=== PATIENT | male | born 2000 | race Caucasian/White ===

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

== ENCOUNTER 2022-09-09 03:45 | Emergency (ER) | payer MEDICAID ==
[~2022-09-09] VITALS: Ht 182.9 cm; Wt 118.6 kg
[~2022-09-09 03:45] MED LIST changes: -famotidine 20mg tablet PO ONE; -ringers solution, lacted 1,000 ML IV SCH
--- NOTE | 2022-09-09 04:22 | NUR ---
PT IS NONVERBAL AND UNABLE TO COOPERATE WITH THE GENERAL ASSESSMENT.
--- NOTE | 2022-09-09 04:23 | NUR ---
SPOKE WITH MAURY, DIRECTOR OF [facility], TO UPDATE ON THE PTS CONDITION. MAURY INFORMED SUPERVISOR DRAWING THAT PT HAS A HX OF 2-3 MINUTE SEIZURES ABOUT ONCE A MONTH. WHEN PT IS SENT HOME A STAFF MEMBER OF [facility] WILL PICK HIM UP. CALL MAURY [phone] OR PATRICIA [phone] TO ARRANGE PICKER.
[2022-09-09 04:31] LABS: BASOPHILS % (AUTO) 0.3 % (0-1); EOSINOPHILS % (AUTO) 0 % (0-6); HEMATOCRIT 41.1 % (42.0-52.0); HEMOGLOBIN 14.7 g/dl (14.0-17.9); LYMPHOCYTES # (AUTO) 0.9 X10'3 (1.1-4.8); LYMPHOCYTES % (AUTO) 11.7 % (21-51); MEAN CORPUSCULAR HEMOGLOBIN 30.4 PG (27.0-31.0); MEAN CORPUSCULAR HGB CONC 35.7 g/dL (33.0-36.5); MEAN PLATELET VOLUME 9.3 FL (7.4-10.4); MONOCYTES % (AUTO) 13.3 % (2-12); NEUTROPHILS # (AUTO) 5.7 X10'3 (1.8-7.7); NEUTROPHILS % (AUTO) 74.7 % (42-75); PLATELET COUNT 125 X10'3 (140-440); RED BLOOD COUNT 4.83 X10'6 (4.70-6.10); RED CELL DISTRIBUTION WIDTH 13.9 % (11.5-14.5); WHITE BLOOD COUNT 7.7 X10'3 (4.5-11.0)
--- NOTE | 2022-09-09 04:42 | NUR ---
charting by TITLE I INSTRUCTIONAL ASSISTANT verified
[2022-09-09 04:49] LABS: ALANINE AMINOTRANSFERASE 20 U/L (12-78); ALBUMIN 3.8 G/DL (3.4-5.0); ALBUMIN/GLOBULIN RATIO 1.2 (1.1-1.5); ALKALINE PHOSPHATASE 53 IU/L (46-116); ANION GAP 12 (8-16); ASPARTATE AMINO TRANSFERASE 17 U/L (10-37); BLOOD UREA NITROGEN 10 MG/DL (7-18); BUN/CREATININE RATIO 11.4 (5.4-32.0); CALCIUM 8.7 MG/DL (8.5-10.1); CHLORIDE 109 MMOL/L (99-107); CREATININE 0.88 MG/DL (0.60-1.10); GLUCOSE 109 MG/DL (70-104); POTASSIUM 3.5 MMOL/L (3.5-5.1); SODIUM 142 MMOL/L (135-145); TOTAL CARBON DIOXIDE 20.8 MMOL/L (24-32); TOTAL PROTEIN 6.9 G/DL (6.4-8.2); eGFR > 90 ML/MIN
[2022-09-09 04:51] LABS: VALPROATE 87 UG/ML (50-100)
[2022-09-09 06:00] VITALS: BP 122/78
== END 2022-09-09 06:02 | disposition home or self-care (01) ==
LOC: ER 03:46
DX: G40.909 Epilepsy, unspecified, not intractable, without status epilepticus (principal)
CPT/HCPCS: 36415; 80053; 80164; 85025; 99284

== ENCOUNTER 2023-05-10 20:01 | Inpatient (IN) | payer MEDICAID ==
[~2023-05-10] VITALS: Ht 188 cm; Wt 109.5 kg
--- NOTE | 2023-05-10 20:16 | NUR ---
Notified SAMANTHA Cesar of axillary temp of 100.8F. Arsenio stated to wait for Dr. Tyler's orders. Addendum: 05/10/23 at 2137 by VZAPATA Jayson saw patient. No new orders for possible fever.
[2023-05-10] MEDS ORDERED: normal saline 1000ML IV soln IVB ONE (20:30)
[2023-05-10 20:36] LABS: BASOPHILS % (AUTO) 0.2 % (0-1); EOSINOPHILS % (AUTO) 0.2 % (0-6); HEMATOCRIT 34.4 % (42.0-52.0); HEMOGLOBIN 11.8 g/dl (14.0-17.9); LYMPHOCYTES % (AUTO) 13.4 % (21-51); MEAN CORPUSCULAR HGB CONC 34.4 g/dL (33.0-36.5); MEAN CORPUSCULAR VOLUME 87.1 FL (78-98); MEAN PLATELET VOLUME 9.8 FL (7.4-10.4); MONOCYTES # (AUTO) 1.1 X10'3 (0-0.9); MONOCYTES % (AUTO) 15.2 % (2-12); NEUTROPHILS # (AUTO) 5.2 X10'3 (1.8-7.7); PLATELET COUNT 107 X10'3 (140-440); RED BLOOD COUNT 3.94 X10'6 (4.70-6.10); RED CELL DISTRIBUTION WIDTH 13.3 % (11.5-14.5); WHITE BLOOD COUNT 7.3 X10'3 (4.5-11.0)
[2023-05-10 20:54] LABS: ALANINE AMINOTRANSFERASE 10 U/L (12-78); ALBUMIN 2.7 G/DL (3.4-5.0); ALBUMIN/GLOBULIN RATIO 1.1 (1.1-1.5); ALKALINE PHOSPHATASE 38 IU/L (46-116); ANION GAP 9 (8-16); ASPARTATE AMINO TRANSFERASE 7 U/L (10-37); BILIRUBIN,TOTAL 1.7 MG/DL (0.1-1.0); BLOOD UREA NITROGEN 10 MG/DL (7-18); BUN/CREATININE RATIO 14.5 (10.0-20.0); CALCIUM 7.2 MG/DL (8.5-10.1); CHLORIDE 114 MMOL/L (99-107); CREATININE 0.69 MG/DL (0.60-1.10); GLUCOSE 86 MG/DL (70-104); SODIUM 140 MMOL/L (135-145); TOTAL CARBON DIOXIDE 16.9 MMOL/L (24-32); TOTAL PROTEIN 5.2 G/DL (6.4-8.2); eCRCL 195 ML/MIN; eGFR > 90 ML/MIN
[2023-05-10 21:41] LABS: VALPROATE 53 UG/ML (50-100)
[2023-05-10 21:42] LABS: POTASSIUM 2.7 MMOL/L (3.5-5.1)
[2023-05-10] MEDS ORDERED: divalproex sod 125mg sprinkle cap PO ONE (21:50)
[2023-05-10] MEDS ORDERED: magnesium 2GM in 50ml NS 50 ML IV ONE (21:50)
[2023-05-10] MEDS ORDERED: potassium CL 10mEq/100ml bag 100 ML IV ONE (21:50)
[2023-05-10 22:07] LABS: MAGNESIUM 1.7 MG/DL (1.5-2.4)
[2023-05-10] MEDS ORDERED: ondansetron/PF 4mg/2ml inj IV PRN (22:55)
[2023-05-10] MEDS ORDERED: magnesium 2GM in 50ml NS 50 ML IV PRN (22:55)
[2023-05-10] MEDS ORDERED: magnesium Cl slow-release 64mg tablet PO PRN (22:55)
[2023-05-10] MEDS ORDERED: acetaminophen 325mg tablet PO PRN (22:55)
[2023-05-10] MEDS ORDERED: potassium Cl 40MEQ/1/2NS 520ml 520 ML IV PRN (22:55)
[2023-05-10] MEDS ORDERED: magnesium 4gm in 100ml NS 100 ML IV PRN (22:55)
[2023-05-10] MEDS ORDERED: potassium Cl 20 mEq SR tablet PO PRN ×2 (22:55)
[2023-05-10] MEDS ORDERED: divalproex sodium 500mg tablet.DR PO ONE (23:05)
--- NOTE | 2023-05-10 23:18 | NUR ---
HOSPITALIST AT BEDSIDE MG GTT IMPLEMENTED VIA PUMP PT SLEEPING SOUNDLY
[2023-05-10 23:24] LABS: CREATINE KINASE 111 U/L (39-308)
--- NOTE | 2023-05-11 | NUR ---
Dr. Tyler stated patient does not need UA. No UA collected.
[2023-05-11] MEDS ORDERED: NORMAL SALINE IV ONE ×3 (00:08)
[2023-05-11] MEDS ORDERED: VALPROATE SOD IV ONE ×4 (00:08→00:28)
[2023-05-11] MEDS ORDERED: DEXTROSE 5% IV ONE (00:28)
[2023-05-11] MEDS ORDERED: WATER IV ONE (00:28)
[2023-05-11] MEDS: potassium Cl 40MEQ/1/2NS 520ml 520 ML IV SCH ×2 (00:30→06:12)
[2023-05-11 00:43] LABS: ABG HCO3 16.2 mmol/L (22.0-26.0); ABG OXYGEN SATURATION 94.8 % (94-97); ABG PCO2 (T) 27.2 mmHg (35.0-48.0); ABG PH (T) 7.393 (7.340-7.440); ABG PO2 (T) 70.5 mmHg (75.0-100.0); FCOHb 0.7 % (0.0-3.9); FHHb 5.2 % (0.0-5.0); FMetHb 0.2 % (0.0-1.5); FO2Hb 93.9 % (94-97); MODE ROOM AIR; TOTAL HEMOGLOBIN 14.3 G/dl (14.0-17.9)
[2023-05-11] MEDS: normal saline 1000ml 1,000 ML IV SCH ×2 (01:01→18:12)
[2023-05-11] MEDS ORDERED: RISP2TAB85 PO (02:02)
[2023-05-11] MEDS ORDERED: TOPI200T16 PO (02:02)
[2023-05-11] MEDS ORDERED: CHOL20003 PO (02:03)
--- NOTE | 2023-05-11 02:04 | NUR ---
pt scooted to end of bed, pulling at iv. pt agitated and standing up inroom trying to leave. caregiver at bedside. staff attempted to redirect pt back to bed. pt swung at staff and tried to push staff out of the way. security called and pt placed back in bed. dr palmer called and one time 1mg IV ativan order recieved. pt caregiver states pt is nonverbal autistic and has a history of being aggressive after he wakes up from having seizures.
[2023-05-11] MEDS ORDERED: LORazepam 2 mg/ml vial IV ONE ×2 (02:05→16:40)
--- NOTE | 2023-05-11 06:29 | NUR ---
pt st side of the bed, refusing to lay down on gurney. nurse at bedside, secutury at bedside, caregiver at bedside. pt not redirectable until security arrives. dr palmer consulted. recieved order for 1mg ativan IV q6 prn.
[2023-05-11] MEDS: LORazepam 2 mg/ml vial IV PRN ×2 (06:39→13:32)
--- NOTE | 2023-05-11 07:00 | NUR ---
Pt. agitated and getting OOB when recieving report, medicated by noc nurse with ativan as ordered. pt. at this time resting quietly on gurney with eyes closed.
[2023-05-11 08:48] LABS: BASOPHILS % (AUTO) 0.4 % (0-1); EOSINOPHILS # (AUTO) 0.1 X10'3 (0-0.9); HEMATOCRIT 41.5 % (42.0-52.0); HEMOGLOBIN 14.3 g/dl (14.0-17.9); LYMPHOCYTES # (AUTO) 1.3 X10'3 (1.1-4.8); LYMPHOCYTES % (AUTO) 20.7 % (21-51); MEAN CORPUSCULAR HEMOGLOBIN 29.7 PG (27.0-31.0); MEAN CORPUSCULAR HGB CONC 34.4 g/dL (33.0-36.5); MEAN CORPUSCULAR VOLUME 86.5 FL (78-98); MONOCYTES # (AUTO) 0.7 X10'3 (0-0.9); MONOCYTES % (AUTO) 11.5 % (2-12); NEUTROPHILS # (AUTO) 4.2 X10'3 (1.8-7.7); NEUTROPHILS % (AUTO) 66.4 % (42-75); PLATELET COUNT 123 X10'3 (140-440); RED CELL DISTRIBUTION WIDTH 13.6 % (11.5-14.5); WHITE BLOOD COUNT 6.4 X10'3 (4.5-11.0)
[2023-05-11] MEDS: acetaminophen 325mg tablet PO SCH ×2 (09:22)
[2023-05-11 09:24] LABS: BLOOD UREA NITROGEN 8 MG/DL (7-18)
[2023-05-11 09:27] LABS: ALANINE AMINOTRANSFERASE 16 U/L (12-78); ALBUMIN 3.5 G/DL (3.4-5.0); ALBUMIN/GLOBULIN RATIO 1.1 (1.1-1.5); ALKALINE PHOSPHATASE 44 IU/L (46-116); ANION GAP 12 (8-16); ASPARTATE AMINO TRANSFERASE 7 U/L (10-37); BILIRUBIN,TOTAL 1.8 MG/DL (0.1-1.0); BUN/CREATININE RATIO 11.1 (10.0-20.0); CALCIUM 8.9 MG/DL (8.5-10.1); CHLORIDE 110 MMOL/L (99-107); CREATININE 0.72 MG/DL (0.60-1.10); GLUCOSE 86 MG/DL (70-104); POTASSIUM 3.8 MMOL/L (3.5-5.1); SODIUM 141 MMOL/L (135-145); TOTAL CARBON DIOXIDE 18.9 MMOL/L (24-32); TOTAL PROTEIN 6.8 G/DL (6.4-8.2); eCRCL 187 ML/MIN; eGFR > 90 ML/MIN
[2023-05-11] MEDS ORDERED: [UNRECOGNIZED DRUG - REMARK] IV ONE (09:30)
--- NOTE | 2023-05-11 09:35 | NUR ---
Pt. incontinent of large amt urine, cleansed and depends placed on pt. cooperative with care. Refused to open mouth to take PO Tylenol.
--- NOTE | 2023-05-11 10:56 | NUR ---
RN SPOKE WITH PHARMACY. INSTRUCTED TO GIVE SCHEDULED DOSE OF VALPROIC ACID PRIOR TO LAB RESULTS PER PHARMACY.
[2023-05-11] MEDS: VALPROATE SOD IV SCH ×2 (11:40→20:13)
[2023-05-11] MEDS: WATER IV SCH ×2 (11:40→20:13)
[2023-05-11] MEDS: DEXTROSE 5% IV SCH ×2 (11:40→20:13)
[2023-05-11] MEDS ORDERED: MELA5CAP PO (15:01)
[2023-05-11] MEDS ORDERED: IBUP-862 PO (15:02)
--- NOTE | 2023-05-11 18:39 | NUR ---
ATTEMPTED TO CALL REPORT, NURSE UNAVAILABLE AT THIS TIME. WILL CALL BACK IN APPROX 10 MINUTES.
[2023-05-11 19:55] VITALS: BP 129/81; PULSE 78; RESP 14; TEMP 97.7; O2SAT 100
[2023-05-11 20:00] VITALS: RESP 14; O2SAT 100
[2023-05-11] MEDS: enoxaparin 40mg/0.4ml syringe SQ SCH (20:14)
--- NOTE | 2023-05-11 22:58 | NUR ---
PATIENT REFUSED 2200 VS AND WILL CONTINUE TO MONITOR Addendum: 05/11/23 at 4248 by Teagan Pan RN Amended: Links added.
[2023-05-12] MEDS: normal saline 1000ml 1,000 ML IV SCH ×2 (01:35→10:18)
[2023-05-12 02:29] LABS: ALANINE AMINOTRANSFERASE 13 U/L (12-78); ALBUMIN 3.2 G/DL (3.4-5.0); ALKALINE PHOSPHATASE 42 IU/L (46-116); ANION GAP 13 (8-16); ASPARTATE AMINO TRANSFERASE 8 U/L (10-37); BILIRUBIN,TOTAL 1.4 MG/DL (0.1-1.0); BLOOD UREA NITROGEN 7 MG/DL (7-18); BUN/CREATININE RATIO 10.8 (10.0-20.0); CALCIUM 8.7 MG/DL (8.5-10.1); CHLORIDE 109 MMOL/L (99-107); CREATININE 0.65 MG/DL (0.60-1.10); GLUCOSE 82 MG/DL (70-104); POTASSIUM 3.4 MMOL/L (3.5-5.1); SODIUM 141 MMOL/L (135-145); TOTAL PROTEIN 6.3 G/DL (6.4-8.2); VALPROATE 90 UG/ML (50-100); eCRCL 207 ML/MIN; eGFR > 90 ML/MIN
[2023-05-12 02:31] LABS: BASOPHILS % (AUTO) 0.5 % (0-1); EOSINOPHILS # (AUTO) 0.1 X10'3 (0-0.9); EOSINOPHILS % (AUTO) 1.6 % (0-6); HEMATOCRIT 39.9 % (42.0-52.0); LYMPHOCYTES # (AUTO) 1.8 X10'3 (1.1-4.8); LYMPHOCYTES % (AUTO) 33.1 % (21-51); MEAN CORPUSCULAR HEMOGLOBIN 30.4 PG (27.0-31.0); MEAN CORPUSCULAR HGB CONC 35.1 g/dL (33.0-36.5); MEAN CORPUSCULAR VOLUME 86.8 FL (78-98); MEAN PLATELET VOLUME 9.7 FL (7.4-10.4); MONOCYTES # (AUTO) 0.6 X10'3 (0-0.9); MONOCYTES % (AUTO) 11.1 % (2-12); NEUTROPHILS # (AUTO) 2.9 X10'3 (1.8-7.7); NEUTROPHILS % (AUTO) 53.7 % (42-75); PLATELET COUNT 125 X10'3 (140-440); RED CELL DISTRIBUTION WIDTH 13.2 % (11.5-14.5); WHITE BLOOD COUNT 5.4 X10'3 (4.5-11.0)
[2023-05-12] MEDS: DEXTROSE 5% IV SCH (02:33)
[2023-05-12] MEDS: WATER IV SCH (02:33)
[2023-05-12] MEDS: VALPROATE SOD IV SCH (02:33)
[2023-05-12] MEDS: LORazepam 2 mg/ml vial IV PRN ×2 (05:45→18:56)
--- NOTE | 2023-05-12 06:59 | NUR ---
Patient in room ORTHO 4021. I have received report from Teagan WHEAT and had the opportunity to ask questions and assume patient care.
[2023-05-12 07:14] VITALS: BP 130/85; PULSE 71; RESP 19; TEMP 98; O2SAT 91
[2023-05-12 08:00] VITALS: RESP 16; RESP 19; O2SAT 91
[2023-05-12] MEDS: acetaminophen 325mg tablet PO SCH ×3 (08:56→17:00)
[2023-05-12] MEDS ORDERED: VALPROATE SOD IV SCH (10:00)
[2023-05-12] MEDS ORDERED: WATER IV SCH (10:00)
[2023-05-12] MEDS ORDERED: DEXTROSE 5% IV SCH (10:00)
[2023-05-12 12:24] VITALS: BP 119/69; PULSE 75; RESP 16; TEMP 97.9; O2SAT 94
--- NOTE | 2023-05-12 14:25 | NUR ---
PAGER ID: [phone] MESSAGE: Lopez Vo Re: Patient is NPO. Would you like to advance the diet? Patient has had no S/S seizures since admission. Thanks [phone]
[2023-05-12 18:00] VITALS: BP 158/98; PULSE 104; RESP 20; TEMP 98.1; O2SAT 99
--- NOTE | 2023-05-12 18:00 | NUR ---
Student documentation: I have reviewed all interventions, assessments performed and documented by Lucio WHEAT. Student Medication Administration: For this medication-pass time frame, all medication were reviewed, dispensed, administered and documented per hospital policy by Lucio WHEAT.
--- NOTE | 2023-05-12 18:34 | NUR ---
Problems reprioritized. Patient report given, questions answered & plan of care reviewed with Prudence RN.
[2023-05-12] MEDS: divalproex sod 125mg sprinkle cap PO SCH (19:49)
[2023-05-12] MEDS: enoxaparin 40mg/0.4ml syringe SQ SCH (19:49)
[2023-05-12 20:00] VITALS: RESP 20; O2SAT 99
[2023-05-12] MEDS ORDERED: divalproex sodium 500mg tablet.DR PO SCH (20:00)
[2023-05-13] MEDS: LORazepam 2 mg/ml vial IV PRN (02:06)
[2023-05-13] MEDS: normal saline 1000ml 1,000 ML IV SCH (04:15)
[2023-05-13 05:31] LABS: ALANINE AMINOTRANSFERASE 14 U/L (12-78); ALBUMIN 3.3 G/DL (3.4-5.0); ALKALINE PHOSPHATASE 41 IU/L (46-116); ANION GAP 12 (8-16); ASPARTATE AMINO TRANSFERASE 9 U/L (10-37); BILIRUBIN,TOTAL 0.9 MG/DL (0.1-1.0); BLOOD UREA NITROGEN 8 MG/DL (7-18); BUN/CREATININE RATIO 10.4 (10.0-20.0); CALCIUM 9.2 MG/DL (8.5-10.1); CHLORIDE 109 MMOL/L (99-107); CREATININE 0.77 MG/DL (0.60-1.10); POTASSIUM 3.5 MMOL/L (3.5-5.1); SODIUM 140 MMOL/L (135-145); TOTAL CARBON DIOXIDE 19.2 MMOL/L (24-32); eCRCL 175 ML/MIN; eGFR > 90 ML/MIN
[2023-05-13 05:31] LABS: BASOPHILS % (AUTO) 0.5 % (0-1); EOSINOPHILS # (AUTO) 0.1 X10'3 (0-0.9); EOSINOPHILS % (AUTO) 1.6 % (0-6); HEMATOCRIT 37.6 % (42.0-52.0); HEMOGLOBIN 13.1 g/dl (14.0-17.9); LYMPHOCYTES # (AUTO) 1.4 X10'3 (1.1-4.8); LYMPHOCYTES % (AUTO) 30.4 % (21-51); MEAN CORPUSCULAR HGB CONC 34.9 g/dL (33.0-36.5); MEAN CORPUSCULAR VOLUME 85.8 FL (78-98); MEAN PLATELET VOLUME 9.8 FL (7.4-10.4); MONOCYTES # (AUTO) 0.7 X10'3 (0-0.9); MONOCYTES % (AUTO) 14.9 % (2-12); NEUTROPHILS # (AUTO) 2.5 X10'3 (1.8-7.7); NEUTROPHILS % (AUTO) 52.6 % (42-75); PLATELET COUNT 132 X10'3 (140-440); RED BLOOD COUNT 4.38 X10'6 (4.70-6.10); RED CELL DISTRIBUTION WIDTH 13.2 % (11.5-14.5); WHITE BLOOD COUNT 4.7 X10'3 (4.5-11.0)
[2023-05-13 05:33] LABS: GLUCOSE 82 MG/DL (70-104); TOTAL PROTEIN 6.7 G/DL (6.4-8.2)
--- NOTE | 2023-05-13 06:35 | NUR ---
PATIENT REFUSED VITALS AT THIS TIME.
--- NOTE | 2023-05-13 07:11 | NUR ---
PAGER ID: [phone] MESSAGE: JULIUS WILLIAM [phone] RE: [id number] Bella RIGGINS PATIENT HAS PULLED IV AND NOT ALLOWING NEW PLACEMENT, COULD WE HAVE AN ORDER TO IV OUT AT THIS TIME. THANKS
[2023-05-13 08:00] VITALS: RESP 16; RESP 18; O2SAT 95
[2023-05-13] MEDS: acetaminophen 325mg tablet PO SCH ×2 (08:50)
[2023-05-13] MEDS: divalproex sod 125mg sprinkle cap PO SCH (08:59)
[2023-05-13 10:00] VITALS: BP 124/78; PULSE 68; RESP 17; TEMP 97.6; O2SAT 98
[2023-05-13] MEDS ORDERED: ibuprofen 200mg tablet PO PRN (10:20)
[2023-05-13] MEDS ORDERED: DIVA125C2 PO ×4 (10:24→12:40)
--- NOTE | 2023-05-13 12:49 | NUR ---
PAGER ID: [phone] MESSAGE: Lopez Vo [phone] Re: [phone] Kavin. Tele neuro follow up recommended for patient to increase from 1000mg up to 1250mg I have already changed medication and sent, patient is discharging.
--- NOTE | 2023-05-13 15:41 | NUR ---
Patient discharge was done with student in the presences of care staff from the living facility. Patient iv was taken out by patient previous night. Patient education provided to staff and patient taken out of the building via walking with linnettebogdan BURTON.
[2023-05-13] MEDS ORDERED: LORazepam 0.5 MG tablet PO SCH (17:00)
[2023-05-13] MEDS ORDERED: divalproex sod 125mg sprinkle cap PO SCH (20:00)
[2023-05-13] MEDS ORDERED: topiramate 100mg tablet PO SCH (20:00)
[2023-05-13] MEDS ORDERED: risperiDONE 2mg tablet PO SCH (20:00)
[2023-05-13] MEDS ORDERED: Melatonin 3mg tablet PO SCH (21:00)
[2023-05-14] MEDS ORDERED: cholecalciferol (vitamin D3) 1,000 unit (25mcg) tablet PO SCH (08:00)
== END 2023-05-13 12:53 | disposition home or self-care (01) | DRG 53 ==
LOC: ER 20:02 → ED HOLD 22:59 → UNDOADMIN 23:45 → EDBEDREQ 05-11 17:48 → ORTHO 4S 05-11 19:05
PROVIDERS: ADMIT Internal Medicine; ATTEND Internal Medicine
DX: G40.901 Epilepsy, unspecified, not intractable, with status epilepticus (principal); E87.6 Hypokalemia; Z20.822 Contact with and (suspected) exposure to COVID-19; F84.0 Autistic disorder; Z79.899 Other long term (current) drug therapy
CPT/HCPCS: 36415; 36600; 71045; 80053; 80164; 82550; 82803; 83605; 83735; 85018; 85025; 87040; 87081; 87811; 97161; 97530; 99285; A6258; G0378; J1650; J2060; J3475; J3480; J3490; J7030; J7060

== ENCOUNTER 2024-08-07 11:31 | Emergency (ER) | payer MEDICAID ==
[~2024-08-07] VITALS: Ht 188 cm; Wt 88.2 kg
[~2024-08-07 11:31] MED LIST changes: +CHOL20003 PO; -DIVA125C2 PO; +IBUP-862 PO; -LORA5SOL56 PO; +MELA5CAP PO; -MELA5TAB12 PO; +RISP-32 PO; -RISP1SOL PO; +TOPI200T16 PO
[2024-08-07 11:45] VITALS: TEMP 97.1
[2024-08-07 13:53] LABS: BASOPHILS % (AUTO) 0.6 % (0-1); EOSINOPHILS # (AUTO) 0.1 X10'3 (0-0.9); EOSINOPHILS % (AUTO) 1.6 % (0-6); HEMATOCRIT 41.7 % (42.0-52.0); HEMOGLOBIN 14.4 g/dl (14.0-17.9); LYMPHOCYTES # (AUTO) 2.5 X10'3 (1.1-4.8); LYMPHOCYTES % (AUTO) 45.1 % (21-51); MEAN CORPUSCULAR HEMOGLOBIN 31.1 PG (27.0-31.0); MEAN CORPUSCULAR HGB CONC 34.5 g/dL (33.0-36.5); MEAN CORPUSCULAR VOLUME 90.1 FL (78-98); MONOCYTES # (AUTO) 0.8 X10'3 (0-0.9); MONOCYTES % (AUTO) 14.5 % (2-12); NEUTROPHILS # (AUTO) 2.1 X10'3 (1.8-7.7); NEUTROPHILS % (AUTO) 38.2 % (42-75); PLATELET COUNT 147 X10'3 (140-440); RED BLOOD COUNT 4.63 X10'6 (4.70-6.10); RED CELL DISTRIBUTION WIDTH 13.9 % (11.5-14.5); WHITE BLOOD COUNT 5.5 X10'3 (4.5-11.0)
[2024-08-07 14:12] LABS: ALANINE AMINOTRANSFERASE 16 U/L (12-78); ALBUMIN 3.7 G/DL (3.4-5.0); ALBUMIN/GLOBULIN RATIO 1.2 (1.1-1.5); ALKALINE PHOSPHATASE 56 IU/L (46-116); ANION GAP 13 (8-16); ASPARTATE AMINO TRANSFERASE 6 U/L (10-37); BILIRUBIN,TOTAL 0.8 MG/DL (0.1-1.0); BLOOD UREA NITROGEN 9 MG/DL (7-18); BUN/CREATININE RATIO 11.8 (10.0-20.0); CALCIUM 8.7 MG/DL (8.5-10.1); CHLORIDE 111 MMOL/L (99-107); CREATININE 0.76 MG/DL (0.60-1.10); GLUCOSE 75 MG/DL (70-104); POTASSIUM 3.6 MMOL/L (3.5-5.1); SODIUM 144 MMOL/L (135-145); TOTAL CARBON DIOXIDE 19.8 MMOL/L (24-32); TOTAL PROTEIN 6.8 G/DL (6.4-8.2); eCRCL 176 ML/MIN; eGFR > 90 ML/MIN
[2024-08-07 14:18] LABS: PRO BRAIN NATRIURETIC PEPTIDE 288 PG/ML (0-125)
[2024-08-07 14:58] VITALS: BP 116/69; PULSE 50; RESP 16; O2SAT 98
== END 2024-08-07 15:00 | disposition home or self-care (01) ==
LOC: ER 11:32
DX: R60.0 Localized edema (principal)
CPT/HCPCS: 36415; 71045; 80053; 83880; 85025; 99284

== ENCOUNTER 2025-02-15 08:13 | Emergency (ER) | payer MEDICAID ==
[~2025-02-15] VITALS: Ht 185.4 cm; Wt 95.0 kg
[~2025-02-15 08:13] MED LIST changes: -TOPI200T16 PO; +TOPI200T68 PO
--- NOTE | 2025-02-15 09:28 | Physician Documentation ---
History of Present Illness ~ Chief Complaint: Seizure Stated Complaint: SEIZURE Time Seen by MD: 09:18 Primary Medical Doctor: Meri Caban Source: other (caregivers) Mode of Arrival: EMS HPI non verbal autistic patient with seizure disorder p/w seizure like activity. Happened on weight shifter.Has not had his morning meds. Now at baseline per his caregivers. Medication Reconciliation Allergies: Coded Allergies: No Known Allergies (Unverified , 05/10/23) Scheduled Cholecalciferol (Vitamin D3) (Vitamin D3), 2 TAB PO DAILY, (Reported) Lorazepam* (Ativan*), 0.5 TAB PO Q12H@0800,1700, (Reported) Melatonin (Melatonin), 15 MG PO HS, (Reported) Risperidone (Risperidone), 1 TAB PO BID, (Reported) Topiramate (Topiramate), 1 TAB PO BID, (Reported) Scheduled PRN Ibuprofen (Ibu), 200 MG PO DAILY PRN for pain, (Reported) Past Medical History Past Medical History: Seizures Past Surgical History: noncontributory Lives In: Assisted Care Occupation: disabled Review of Systems Unable to obtain complete ROS: other Physical Exam Vital Signs: Temperature: 97.6, Source: Temporal, Heart Rate: 60, Respiratory Rate: 18, BP: 115/74, Pulse Oximetry: 100, Weight: 95.000 Oxygen Flow Rate: 0 General Appearance: alert, no apparent distress Head: no evidence of injury; No: active bleeding Face: normal, swelling Pupils/EOM/Fundus: PERRLA Ears: normal inspection Nose: normal inspection Mouth: No: normal inspection Neck: non-tender, full range of motion Chest: no accessory muscle use Gastrointestinal: normal palpation Back: normal inspection Neurologic: unable to test Motor / Sensory: no motor deficit Coordination / Gait: normal gait Progress Results/Orders Results/Orders Vital Signs 02/15/25 02/15/25 02/15/25 08:18 08:25 08:31 Temp 97.6 Pulse 65 60 Resp 18 15 18 B/P (MAP) 113/73 115/74 (88) Pulse Ox 99 100 O2 Flow Rate 0 0 Medical Decision Making Additional info obtained from: old records Findings d/c summary 05/21 Differential Dx:Considerations: Include: Syncope, Epilepsy-break through, Epilepsy-status Departure Disposition: 01 HOME / SELF CARE / HOMELESS Impression: Primary Impression: Seizure disorder Additional Instructions: If he has any return of seizures please return to the ER. Otherwise give his morning meds and call his neurologist Referrals: NO PRIMARY CARE PROVIDER (PCP) Signature Scribe Signature: na Attestation: ELFEGO Osullivan MD Feb 15, 2025 09:28
[2025-02-15 10:01] VITALS: BP 120/75; PULSE 52; RESP 13; TEMP 97.6; O2SAT 98
== END 2025-02-15 10:04 | disposition home or self-care (01) ==
LOC: ER 08:14
DX: G40.909 Epilepsy, unspecified, not intractable, without status epilepticus (principal); F84.0 Autistic disorder; Z79.899 Other long term (current) drug therapy
CPT/HCPCS: 99284

== ENCOUNTER 2025-02-27 20:33 | Inpatient (IN) | payer MEDICAID ==
[~2025-02-27] VITALS: Ht 182.9 cm; Wt 86.0 kg
--- NOTE | 2025-02-27 21:19 | Physician Documentation ---
History of Present Illness ~ Chief Complaint: Seizure Stated Complaint: SEIZURE Time Seen by MD: 21:14 OK to notify your PCP?: Yes Primary Medical Doctor: Meri Caban Source: patient, RN/MD, EMS, RN notes reviewed, old records Mode of Arrival: EMS HPI 24 year old male seen in bed 05 with history of nonverbal autism and seizures presents to the emergency department brought via EMS from a care facility due to seizures. Patient presents with nurses at bedside. The nurses state that patient has been having approximately four seizures today, they state that they were grand mal. The first two lasting about one minute, with the third and fourth ones lasting about 7 minutes. Patient has a history of seizers but there is usually only one a month. Last seizure approximately at 1930. Per EMS patient was not given his night medications by staff. Of note patient had a recnnt change in medication. He was taken off of fycomopa and perscribes clobazam. Medication Reconciliation Allergies: Coded Allergies: No Known Allergies (Unverified , 02/27/25) Scheduled Cholecalciferol (Vitamin D3) (Vitamin D3), 2 TAB PO DAILY, (Reported) Clobazam (Clobazam), 0.25 TAB PO BID, (Reported) Divalproex Sodium (Depakote), 1 TAB PO BID, (Reported) Lacosamide (Vimpat), 1 TAB PO BID, (Reported) Lorazepam* (Ativan*), 0.5 TAB PO QAM, (Reported) Melatonin (Melatonin), 15 MG PO HS, (Reported) Risperidone (Risperidone), 1 TAB PO BID, (Reported) Topiramate (Topiramate), 1 TAB PO BID, (Reported) Scheduled PRN Diazepam (Diazepam), 10 MG MEME PRN PRN for seizures, (Reported) Ibuprofen (Ibu), 200 MG PO DAILY PRN for pain, (Reported) Lorazepam (Ativan), 1 TAB PO HS PRN for anxiety, (Reported) Discontinued Medications Perampanel (Fycompa), 4 PO DAILY, (Reported) Discontinued Reason: Other Past Medical History Past Medical History: Seizures Past Surgical History: noncontributory Lives In: Assisted Care Occupation: disabled Review of Systems ROS Unable to obtain ROS. Physical Exam Vital Signs: RN Vital Signs have been reviewed: Yes, Temperature: 98.0, Source: Oral, Heart Rate: 73, Respiratory Rate: 12, BP: 109/74, Pulse Oximetry: 100, Weight: 86.000 Oxygen Flow Rate: 0 Pulse Oximetry Reflects: adequate oxygenation Physical Exam General: Patient was nonverbal and rocking in the bed. The patient is well developed, well nourished, nontoxic appearing and is in no acute distress. Skin: [place], warm and dry with no rashes. HEENT: Head was normocephalic and atraumatic. Eyes - pupils equal, round, reactive to light and accommodation. Extraocular movements were intact. Conjunctivae were nonicteric. Ears - bilateral tympanic membranes were normal. The mouth and oropharynx were clear with dry mucous membranes. There were no pharyngeal exudates or erythema. Neck: Supple and nontender. There was no jugular venous distention, lymphadenopathy, thyromegaly or masses. Chest: Clear to auscultation bilaterally without wheezes, rales or rhonchi. No accessory muscle use. No dullness to percussion. Heart: Rate regular and rhythmic. S1, S2. No murmurs. Palpation of the chest wall was normal. No rubs or thrills. Abdomen: Soft, nontender and nondistended. Positive bowel sounds. No guarding or rebound. No hepatosplenomegaly or palpable masses. Extremities: No cyanosis, clubbing or edema. The patient moves all extremities. Pulses were equal and symmetric. Neurologic: Cranial nerves II-XII were intact. Sensation was intact to light touch throughout. Motor strength was 5/5 in all four extremities. Deep tendon reflexes were intact in both upper and lower extremities. Psychologic: The patient was alert and orient x1. The patient demonstrated appropriate judgement and insight. Progress Progress Note 2327: The case was discussed with the hospitalist who was informed on the patients case and kindly agreed to admission. Results/Orders Results/Orders Medications Received in ER Medications (Trade) Dose Ordered Sig/Jovanni Route PRN Reason Start Time Stop Time Status Last Admin Dose Admin Sodium Chloride 1,000 ml @ 200 mls/hr Q5H ONCE IV 02/27/25 21:15 02/28/25 02:14 02/27/25 21:50 200 MLS/HR (Valium inj) 5 mg ONCE ONCE IV 02/27/25 21:15 02/27/25 21:20 DC 02/27/25 21:48 5 MG Vital Signs 02/27/25 02/27/25 02/27/25 20:57 21:00 23:27 Temp 98.0 Pulse 73 65 Resp 12 16 16 B/P (MAP) 109/74 117/72 (87) Pulse Ox 100 95 O2 Flow Rate 0 0 Laboratory Tests Test 02/27/25 22:01 White Blood Count 4.2 L Red Blood Count 4.73 Hemoglobin 14.2 Hematocrit 40.7 L Mean Corpuscular Volume 86.0 Mean Corpuscular Hemoglobin 30.1 Mean Corpuscular Hemoglobin Concent 35.0 Red Cell Distribution Width 13.6 Platelet Count 119 L Mean Platelet Volume 10.9 H Neutrophils (%) (Auto) 37.8 L Lymphocytes (%) (Auto) 50.1 Monocytes (%) (Auto) 10.4 Eosinophils (%) (Auto) 0.9 Basophils (%) (Auto) 0.8 Neutrophils # (Auto) 1.6 L Lymphocytes # (Auto) 2.1 Monocytes # (Auto) 0.4 Eosinophils # (Auto) 0.0 Basophils # (Auto) 0.0 CBC Comment Prothrombin Time 11.9 INR International Normalized Ratio 1.2 Activated Partial Thromboplast Time 28 Coagulation Comments Sodium Level 138 Potassium Level 3.8 Chloride Level 110 H Carbon Dioxide Level 21.1 L Anion Gap 7 L Blood Urea Nitrogen 17 Creatinine 0.81 Estimated GFR/1.73 m2 > 90 BUN/Creatinine Ratio 21.0 H Glucose Level 87 Lactic Acid Level 0.8 Calcium Level 8.4 L Magnesium Level 2.1 Total Bilirubin 1.2 H Direct Bilirubin 0.2 Aspartate Amino Transf (AST/SGOT) 11 Alanine Aminotransferase (ALT/SGPT) 20 Alkaline Phosphatase 44 L Total Creatine Kinase 81 Myoglobin 33.0 Total Protein 6.3 L Albumin 3.7 Globulin 2.6 L Albumin/Globulin Ratio 1.4 Lipase 44 Chemistry Comments Valproic Acid (Depakene) Level 59 Ethyl Alcohol Level < 10 EKG/XRAY/CT/US/VASC/MRI Chest X-Ray : Additional Comments CHEST RADIOGRAPH Indication: seizure, aspiration pneumonia Technique: Single frontal view of the chest was obtained COMPARISON: DI CHEST,SINGLE VIEW on DOS: 08/07/24, DI CHEST,SINGLE VIEW on DOS: 05/10/23 FINDINGS: Lines and Tubes: None Lungs: Clear Pleura: No effusion. No pneumothorax. Cardiomediastinal contours: Unremarkable Bones: Unremarkable IMPRESSION: 1. No acute disease. Electronically Signed by:KING BORRERO MD Date & Time: 02/27/252140 Departure Time of Disposition: 23:28 Disposition: 09 ADMITTED INPATIENT Impression: Primary Impression: Status epilepticus Condition: Fair Discharge Instructions: Epilepsy Referrals: NO PRIMARY CARE PROVIDER (PCP) Education Educated: Family, Other Educated regarding: diagnosis, treatment, prognosis, other Critical Care Note Total Time (mins): 30 Critical Care Note The very real possibility of a deterioration of this patient's condition required the highest level of my preparedness for sudden, emergent intervention. I provided critical care services, which included medication orders, frequent reevaluations of the patient's condition and response to treatment, ordering and reviewing test results, and discussing the case with various consultants. Excludes time spent performing separately billable procedures. The critical care time associated with the care of the patient was 30 minutes. Signature Scribe Signature: Scribed for Stephan Tyler MD by [place] Reed . 02/27/25 21:25 STEPHAN TYLER MD Feb 27, 2025 21:19 [place] FRY Feb 27, 2025 21:25
--- NOTE | 2025-02-27 21:43 | RADIOLOGY REPORT ---
CHEST RADIOGRAPH Indication: seizure, aspiration pneumonia Technique: Single frontal view of the chest was obtained COMPARISON: DI CHEST,SINGLE VIEW on DOS: 08/07/24, DI CHEST,SINGLE VIEW on DOS: 05/10/23 FINDINGS: Lines and Tubes: None Lungs: Clear Pleura: No effusion. No pneumothorax. Cardiomediastinal contours: Unremarkable Bones: Unremarkable IMPRESSION: 1. No acute disease.
[2025-02-27] MEDS: diazepam inj 5 MG/ML inj. IV ONE (21:48)
[2025-02-27] MEDS: normal saline 1000ml 1,000 ML IV ONE (21:50)
[2025-02-27] MEDS ORDERED: LACOSAMIDE (Vimpat) 100mg/10ml (10 MG/ML) oral UD solution PO STA (22:00)
[2025-02-27 22:14] LABS: MEAN PLATELET VOLUME 10.9 FL (7.4-10.4); RED CELL DISTRIBUTION WIDTH 13.6 % (11.5-14.5)
[2025-02-27] MEDS ORDERED: LACOSAMIDE 50 MG TABLET PO STA (22:16)
[2025-02-27 22:24] LABS: APTT 28 SECONDS (22-32); INR 1.2 INR
[2025-02-27 22:40] LABS: CREATININE 0.81 MG/DL (0.60-1.10); MYOGLOBIN 33.0 ng/ml (16-96); TOTAL CARBON DIOXIDE 21.1 MMOL/L (24-32); VALPROATE 59 UG/ML (50-100); eCRCL 154 ML/MIN; eGFR > 90 ML/MIN
[2025-02-27 22:50] LABS: ETHANOL < 10 MG/DL (<10)
[2025-02-27] MEDS ORDERED: LACO200T2 PO (23:05)
[2025-02-27] MEDS ORDERED: DIVA125T2 PO (23:05)
[2025-02-27] MEDS ORDERED: PERA4TAB PO (23:05)
[2025-02-27] MEDS ORDERED: DIAZ5SOL NAS (23:05)
[2025-02-27] MEDS ORDERED: LORA-269 PO (23:05)
[2025-02-27] MEDS ORDERED: CLOB20TA PO (23:06)
[2025-02-28] MEDS ORDERED: LACOSAMIDE (Vimpat) 100mg/10ml (10 MG/ML) oral UD solution PO STA (00:34)
[2025-02-28] MEDS: divalproex sod 125mg sprinkle cap PO STA (00:57)
[2025-02-28] MEDS ORDERED: ondansetron/PF 4mg/2ml inj IV PRN (01:05)
[2025-02-28] MEDS ORDERED: magnesium hydroxide 30ml (MOM) UD suspension PO PRN (01:05)
[2025-02-28] MEDS ORDERED: mag hydrox/Alum hydrox/simeth 30ml oral suspension PO PRN (01:05)
[2025-02-28] MEDS ORDERED: potassium Cl 20 mEq SR tablet PO PRN ×2 (01:05)
[2025-02-28] MEDS ORDERED: potassium Cl 40MEQ/1/2NS 520ml 520 ML IV PRN (01:05)
[2025-02-28] MEDS ORDERED: metoclopramide 5 mg/ml inj IV PRN (01:05)
[2025-02-28] MEDS ORDERED: magnesium sulf-water 4G/100mL 100 ML IV PRN (01:05)
[2025-02-28] MEDS ORDERED: magnesium sulf-water 2g/50mL 50 ML IV PRN (01:05)
[2025-02-28] MEDS ORDERED: magnesium Cl slow-release 64mg tablet PO PRN (01:05)
[2025-02-28] MEDS: LACOSAMIDE 200mg/20ml inj. 200 MG in normal saline 100ml IV soln 100 ML IV ONE (01:40)
[2025-02-28] MEDS: normal saline 1000ml 1,000 ML IV SCH (02:02)
--- NOTE | 2025-02-28 02:10 | RADIOLOGY REPORT ---
EXAM: CT CT HEAD INDICATION: Multiple seizures TECHNIQUE: CT of the head without intravenous contrast. Radiation Dose : 1. Head: CT Dose: CTDI volume is 67.7 mGy. Dose-length product is 1408.7 mGy*cm The dose indicators for CT are the volume Computed Tomography (CT) Dose Index (CTDIvol) and the Dose Length Product (DLP), and are measured in units of mGy and mGy-cm, respectively. These indicators are not patient dose, but values generated from the CT scanner acquisition factors. The report includes radiation exposure data for exposures received during this examination. COMPARISON: None FINDINGS: No intracranial hemorrhage, mass effect, or cerebral edema. CSF spaces are normal in size and morphol ogy. No acute finding of the bones or soft tissues. The visualized paranasal sinuses, orbits, and mas toids are unremarkable. IMPRESSION: 1. No acute intracranial abnormality. Radiation optimization: All CT scans at this facility use at least one of these dose optimization cristal hniques: automated exposure control mA and/or kV adjustment per patient size (includes targeted exam s where dose is matched to clinical indication) or iterative reconstruction.
--- NOTE | 2025-02-28 03:42 | HISTORY AND PHYSICAL-Residence ---
History & Physical Providers to Resident Creating Document: SHAHID TONY RES ~ History of Present Illness Primary Medical Doctor: [facility] Reason for Admit\Complaint: Seizures History of Present Illness This is a 24-year-old male patient with a past medical history of autism, epilepsy, moderate intellectual disability, presented to the emergency department for multiple seizures today. The patient usually has 1-2 seizures weekly but today he had four seizures in 4 hours, followed by postictal and delayed return to baseline. The patient Fycompa and clobazam were discontinued yesterday by his neurologist in [facility]. The patient did not have head trauma or infection symptoms such as fever, cough, abdominal pain or vomiting. He was brought by his caregiver who states the patient is not at his baseline. Allergies: Coded Allergies: No Known Allergies (Unverified , 02/27/25) Home Medications Home Medications Active Reported Clobazam 20 Mg Tablet 0.25 Tab PO BID MDD 2 Tablet(s) 30 Days Diazepam 5 Mg/5 Ml (1 Mg/Ml) Solution 10 Mg MEME PRN PRN Vimpat (Lacosamide) 200 Mg Tablet 1 Tab PO BID 30 Days Depakote (Divalproex Sodium) 125 Mg Tablet.dr 1 Tab PO BID 30 Days Ativan (Lorazepam) 1 Mg Tablet 1 Tab PO HS PRN 30 Days Ibu (Ibuprofen) 600 Mg Tablet 200 Mg PO DAILY PRN 7 Days Melatonin 5 Mg Capsule 15 Mg PO HS 30 Days Vitamin D3 (Cholecalciferol (Vitamin D3)) 50 Mcg (2000 Unit) Tablet 2 Tab PO DAILY Topiramate 200 Mg Tablet 1 Tab PO BID Risperidone 2 Mg Tablet 1 Tab PO BID Ativan* (Lorazepam) 1 Mg Tablet 0.5 Tab PO QAM 30 Days Past Medical History Past Medical History Autism Epilepsy Moderate intellectual disability Past Surgical History Surgical History Comment Appendectomy Past Social History Smoking: Non-Smoker Alcohol Use: None Drug Use: None Lives with: Other Lives In: Assisted Care Occupation: disabled ROS All Other Systems: Reviewed and Negative Exam Vitals: Vital Signs Date Time Temp Pulse Resp B/P (MAP) Pulse Ox O2 Delivery O2 Flow Rate FiO2 02/28/25 02:10 52 16 109/67 (81) 100 0 02/27/25 20:57 98.0 General: General: Somnolent and drowsy but responsive when called, no acute distress. HEENT: Conjunctiva pink, Sclera clear, Mucus Membranes dry Neck: Supple without masses and tenderness. Resp: Unlabored. Lungs clear to auscultation bilaterally. Heart: Regular Rate and rhythm, normal S1 and S2 without murmur, rub or gallop. Abdomen: Soft and non tender no organomegaly Extremities: No cyanosis,clubbing or edema. Skin: Warm and Dry. Diagnostic Data Last Recorded Lab Results: 02/27/25220002/27/252200 Diagnostic Data: Laboratory Tests Test 02/27/25 22:01 Prothrombin Time 11.9 SECONDS (9.0-12.0) INR International Normalized Ratio 1.2 INR Activated Partial Thromboplast Time 28 SECONDS (22-32) Coagulation Comments Advance Care Planning Advanced Care plannin - 30 Minutes (The patient is full code according to his caregiver) Additional Plan Assessment This a 24-year-old male patient, with a history of autism and epilepsy, admitted for uncontrolled seizures most likely secondary to recent medication change. He was restarted on Onfi 5 mg. Teleneurologist was consulted in ER and is pending recommendation notes. Plan Epilepsy - uncontrolled seizures Most likely secondary to recent medication change Patient received diazepam 5 mg IV in ER Clobazam 5 mg restarted Restart fycompa (not available in the hospital pharmacy) Continue home antiepileptic medication Ordered head CT: No acute intracranial abnormality Chest x-ray: No acute disease WBC 5.2, procalcitonin less than 0.05, lactic acid 0.8 Normal valproic acid levels Pending urinalysis Pending topiramate levels Pending teleneurologist recommendations IV hydration with 125 mL/hr of lactated ringer NPO until swallow test Code Status: Full code DVT prophylaxis: Heparin Analgesia/sedation: Morphine Line/tube: PIV GI prophylaxis: None Nutrition: NPO until swallow test Prognosis: Guarded Disposition: Continue medical treatment. Pt seen and discussed with the resident hx of seizures started having more frequently will restart meds get further recs from Neuro no threat to airway at this time we will follow Date of Service: Feb 28, 2025 Billing Provider: ANTON SANZ MD, LUCAS, KEKE Feb 28, 2025 03:42 ANTON SANZ MD Feb 28, 2025 06:51
--- NOTE | 2025-02-28 05:08 | [facility] CONSULT REPORT ---
[facility] Procedure Note [facility] Procedure Note Consult [facility] Note # Demographics Consult Type: General Neurology Patient Location: Emergency Room First Name: MOON Last Name: GILSON Date of : 2000 Age: 24 Gender: Male Facility: [facility] Time of Initial Page (): 02/27/2025 22:04 Time of Return Call (): 02/27/2025 22:04 # HPI History: 24 yo M developmental delay/non-verbal seizure disorder presents with multiple seizure. About 2x yr having multiple seizures including status. Now back to baseline. Stopped Fycompa while starting low dosage ONFI. Current AED: VPA 1125 mg BID Vimpat 200 mg BID Ativan 0.5 mg BID for mood Fycompa 4 mg daily (6 mg daily but had swelling in legs) was stopped, ONFI was started 5 mg to help with seizures/sleep Valtoco 10 mg only 4 seizures today. Recent change in meds. les Miranda # Exam Mental Status: - awake Language: non-verbal patient Motor: can raise both UE # Data Head CT: - per radiologist read - no bleed # Assessment Impression: - Seizure Give Vimpat 300 mg once, then home Vimpat 200 mg BID, continue home Depakote, Ativan and Restart Fycompa 4 mg daily. Rather than stopping Fycompa while starting ONFI at the same time would continue Fycompa until ONFI is increased. INCREASE ONFI to 10 mg nightly, and increase after 1 week to 20 mg nightly, then to 30 mg nightly after 1 week and follow up with neurologist to determine further steps. Once at least 30 to 40 mg nightly of ONFI may begin to reduce/stop Fycompa. INCREASE Valtoco to 20 mg (correct treatment dosage) for any seizure lasting more than 5 minutes. # Plan Other: - If patient has any neurological deterioration please call me back immediately # Logistics Attestation of consult completion: The patient is located at: [facility]. Facility staff participated in the visit. I performed this telemedicine visit from my offsite office utilizing interactive 2 way audio and visual telecommunication technology. Total time spent in telemedicine encounter: I spent 25 minutes reviewing clinical data and/or imaging, obtaining history, examining the patient, communicating with the onsite care team, and in preparation of this report. # Demographics First Name: MOON Last Name: GILSON Facility: [facility] Electronically signed at 02/28/2025 05:07 ([place] Time) by Cecelia Robison MD Neuro Consult Order placed for: Yes CECELIA ROBISON MD Feb 28, 2025 05:08
[2025-02-28 06:30] LABS: MEAN PLATELET VOLUME 10.9 FL (7.4-10.4); RED CELL DISTRIBUTION WIDTH 13.6 % (11.5-14.5)
[2025-02-28 06:59] LABS: CREATININE 0.67 MG/DL (0.60-1.10); TOTAL CARBON DIOXIDE 17.3 MMOL/L (24-32); eCRCL 187 ML/MIN; eGFR > 90 ML/MIN
[2025-02-28 07:15] VITALS: BP 120/74; PULSE 44; RESP 15; TEMP 97.9; O2SAT 100
[2025-02-28] MEDS: K and/or MAG REPLACEMENT MC SCH (08:00)
[2025-02-28] MEDS: CLOBAZAM 10 MG PO SCH ×2 (08:00→20:14)
[2025-02-28] MEDS: LACOSAMIDE 50 MG TABLET PO SCH (08:08)
[2025-02-28] MEDS: divalproex sod 125mg tablet.DR PO SCH (08:09)
[2025-02-28] MEDS: docusate sod 100mg capsule PO SCH (08:09)
[2025-02-28] MEDS: heparin, porcine 5000 units/ml vial SQ SCH (08:10)
[2025-02-28 10:00] VITALS: BP 123/66; PULSE 89; RESP 14; TEMP 98.4; O2SAT 96
--- NOTE | 2025-02-28 10:21 | PROGRESS NOTE ---
Daily Progress Note Providers to CC ~ Antibiotic Timeout Antibiotic Ordered?: No Subjective Patient is seen standing next to the window, two caregivers at the bedside. RN reported to me that patient has been aggressive in his removed his IV. Caregiver advised me against examining the patient. Objective Vital Signs Date Time Temp Pulse Resp B/P (MAP) Pulse Ox O2 Delivery O2 Flow Rate FiO2 02/28/25 10:00 98.4 89 14 123/66 (85) 96 Room Air 02/28/25 09:33 0.0 Result Diagram: 02/28/25 0618 02/28/25 0618 Exam deferred Coagulation Studies Laboratory Tests Test 02/27/25 22:01 Prothrombin Time 11.9 SECONDS (9.0-12.0) INR International Normalized Ratio 1.2 INR Activated Partial Thromboplast Time 28 SECONDS (22-32) Coagulation Comments Problem\Assessment\Plan 24 years old male with developmental delay, who is nonverbal at baseline, has a seizure disorder, presented with multiple seizures 1. Breakthrough seizures: Tele neurology consulted. Continue Vimpat, Depakote, Ativan and Fycompa. Neurologist recommended continuing Fycompa while up titrating ONFI. 2. History of autism and intellectual disability: Continue monitor 3. Code status full code 4. Disposition: Likely home in a.m. if no further seizures Date of Service: Feb 28, 2025 Billing Provider: KELY HOLLY MD Common Visit Codes: [id number] INP/OBS CARE(MOD) KELY HOLLY MD Feb 28, 2025 10:21
[2025-02-28 18:00] VITALS: BP 127/82; PULSE 83; RESP 16; TEMP 98.7; O2SAT 99
[2025-02-28 22:00] VITALS: BP 131/76; PULSE 59; RESP 16; TEMP 97; O2SAT 96
[2025-03-01 06:00] VITALS: BP 120/80; PULSE 64; RESP 18; TEMP 98.2; O2SAT 98
[2025-03-01 07:00] LABS: MEAN PLATELET VOLUME 10.9 FL (7.4-10.4); RED CELL DISTRIBUTION WIDTH 13.4 % (11.5-14.5)
[2025-03-01 07:31] LABS: CREATININE 0.80 MG/DL (0.60-1.10); TOTAL CARBON DIOXIDE 18.2 MMOL/L (24-32); eCRCL 156 ML/MIN; eGFR > 90 ML/MIN
[2025-03-01] MEDS: CLOBAZAM 10 MG PO SCH (08:36)
[2025-03-01 10:00] VITALS: BP 117/66; PULSE 52; RESP 19; TEMP 97.3; O2SAT 100
--- NOTE | 2025-03-01 11:45 | DISCHARGE SUMMARY ---
Discharge Summary Providers to CC ~ Discharge Summary Admission Diagnosis: SIZURE EPILEPTICUS Hospital Course DATE OF ADMISSION:02/28/2025 DATE OF DISCHARGE:03/01/2025 Discharge Diagnosis\Comment: Breakthrough seizure Operations\Procedures: Head CT Consultants: Teleneurology Complications: None Condition on DC: Stable Continued Medications: Cholecalciferol (Vitamin D3) (Vitamin D3) 50 Mcg (2000 Unit) Tablet 2 TAB PO DAILY Clobazam (Clobazam) 20 Mg Tablet 0.25 TAB PO BID MDD 2 Tablet(s) for 30 Days, #60 TAB 0 Refills Diazepam (Diazepam) 5 Mg/5 Ml (1 Mg/Ml) Solution 10 MG MEME PRN PRN for seizures Divalproex Sodium (Depakote) 125 Mg Tablet.dr 1 TAB PO BID for 30 Days, #60 TAB 0 Refills Ibuprofen (Ibu) 600 Mg Tablet 200 MG PO DAILY PRN for pain for 7 Days, #28 TAB 0 Refills Lacosamide (Vimpat) 200 Mg Tablet 1 TAB PO BID for 30 Days, #60 TAB 0 Refills Lorazepam (Ativan) 1 Mg Tablet 1 TAB PO HS PRN for anxiety for 30 Days, #60 TAB 0 Refills Lorazepam* (Ativan*) 1 Mg Tablet 0.5 TAB PO QAM for 30 Days, #60 TAB Melatonin (Melatonin) 5 Mg Capsule 15 MG PO HS for sleep for 30 Days, #30 CAP 0 Refills Risperidone (Risperidone) 2 Mg Tablet 1 TAB PO BID Topiramate (Topiramate) 200 Mg Tablet 1 TAB PO BID Discharge Summary: Reason for admission : 24 years old male with developmental delay, who is nonverbal at baseline, has a seizure disorder, presented with multiple seizures. Please refer to admission H & P for further details. Hospital course : Patient was admitted to the monitored floor and his hospital course is as follows. 1. Breakthrough seizures: Tele neurology consulted. Continued on Vimpat, Depakote, Ativan and Fycompa. Neurologist recommended continuing Fycompa while up titrating ONFI. No further seizures reported during this admission. 2. History of autism and intellectual disability: No acute issues during this admission 3. Code status : Patient was kept as a full code Discharge day exam : I examined the patient on the day of discharge. Three ca regivers at the bedside on the day of discharge. Awake cooperative, nonverbal HEENT normocephalic atraumatic Neck supple, no JVD Chest CTA no wheezes crackles or rhonchi Heart RRR Abdomen soft nontender no organomegaly Extremities No C/C/E Neuro exam Nonfocal Disposition: long-term with care givers. Follow up with PCP and neurologist *Problems/Diagnosis: (1) Seizure disorder Status: Acute Total Time Spent on D/C: > 30 Minutes Date of Service: Mar 01, 2025 Billing Provider: KELY HOLLY MD Common Visit Codes: [id number] DISCH DAY >30min KELY HOLLY MD Mar 01, 2025 10:36
== END 2025-03-01 12:00 | disposition home or self-care (01) | DRG 53 ==
LOC: ER 20:34 → ED HOLD 23:37 → EDBEDREQ 02-28 05:42 → ORTHO 4S 02-28 07:20
PROVIDERS: ADMIT Internal Medicine; ATTEND Internal Medicine
DX: G40.901 Epilepsy, unspecified, not intractable, with status epilepticus (principal); F71 Moderate intellectual disabilities; F84.0 Autistic disorder; Z90.49 Acquired absence of other specified parts of digestive tract; R62.50 Unspecified lack of expected normal physiological development in childhood; Z79.899 Other long term (current) drug therapy
CPT/HCPCS: 36415; 70450; 71045; 80048; 80053; 80076; 80164; 80201; 80320; 82550; 82948; 83605; 83690; 83735; 83874; 84145; 85025; 85610; 85730; 86140; 87040; 87081; 99291; C9254; G0378; J1644; J3360; J7030